=== PATIENT | female | born 1945 | race Caucasian/White ===

== ENCOUNTER 2023-11-08 08:49 | Day surgery (SDC) | payer MEDICARE, BC ==
[2023-11-08] MEDS ORDERED: Lactated Ringers 1,000 ML IV ONE (09:03)
[2023-11-08] MEDS: Lactated Ringers 1,000 ML IV SCH (09:09)
[2023-11-08 09:26] VITALS: RESP 18
[2023-11-08 09:33] LABS: Absolute Neutrophil Ct (ANC) 2.42 x10^3/uL (1.4-6.9); BASOPHIL % 1.3 % (0.0-0.4); Basophil (Absolute #) 0.06 x10^3/uL (0-0.4); Eosinophil % 1.5 % (0.00-5.0); Eosinophil (Absolute #) 0.07 x10^3/uL (0-0.5); Hematocrit 34.4 % (35-47); Hemoglobin 11.5 g/dL (12.0-16.0); IMMATURE GRAN # 0.01 x10^3u/L (0.00-0.03); IMMATURE GRAN % 0.2 % (0.00-0.4); Lymphocyte (Absolute #) 1.74 x10^3/uL (1.0-4.6); Lymphocytes % 37.3 % (24.0-44.0); Mean Cell Volume 99.7 fL (78-100); Mean Corpuscular Hemoglobin 33.3 pg (26-32); Mean Corpuscular Hgb Concent. 33.4 g/dL (32-36); Mean Platelet Volume 10.2 fL (7.5-11.0); Monocyte (Absolute #) 0.37 x10^3/uL (0.0-1.3); Monocytes % 7.9 % (0.0-12.0); Neutrophil % 51.8 % (36.0-66.0); Platelet Count 133 x10^3/uL (150-450); Red Blood Count 3.45 x10^6/uL (4.1-5.4); Red Cell Distribution Width 13.1 % (11.5-14.0); White Blood Count 4.7 x10^3/uL (4.0-10.5)
[2023-11-08 09:53] LABS: ANION GAP 16.7 MEQ/L (5-15); Calcium 9.3 mg/dL (8.4-10.2); Creatinine 1 1.05 mg/dL (0.52-1.04); EST GLOMERULAR FILTRATION RATE 54.4 ML/MIN; Potassium 3.9 mmol/L (3.5-5.1)
[2023-11-08] MEDS ORDERED: Xylocaine-Mpf 2% 5 Ml Vial ONE (12:04)
[2023-11-08] MEDS ORDERED: DIPRIVAN 200 MG/20 ML IV ONE ×2 (12:04→12:15)
[2023-11-08] MEDS ORDERED: ATROPINE SULFATE 1MG ONE (12:09)
[2023-11-08] MEDS ORDERED: SUBLIMAZE 100 MCG/2 ML ONE (12:14)
[2023-11-08] MEDS ORDERED: Ephedrine Sulfate 50 MG/ML ONE (12:29)
[2023-11-08 13:09] VITALS: BP 122/69; PULSE 77; TEMP 96.9; O2SAT 96
--- NOTE | 2023-11-08 13:24 | OP ---
SURGERY DATE/TIME: 11/08/2023 1158 PREOPERATIVE DIAGNOSIS: Due for colorectal cancer screening, average risk. POSTOPERATIVE DIAGNOSIS: One small polyp. PROCEDURE: Colonoscopy with polypectomy. SURGEON: Lyle Dalton M.D. ANESTHESIA: IV anesthesia. CONDITION: Stable. COMPLICATIONS: None. SPECIMEN: Sigmoid polyp 3 mm. HISTORY: This patient is a 77-year-old female average risk due for a screening. She was having a little diarrhea with dairy products. No concerning symptoms. She wants to proceed. FINDINGS: A 3 mm probably hyperplastic sigmoid polyp removed with cold forceps. DESCRIPTION OF PROCEDURE: The patient was brought to endoscopy suite. Routinely positioned and prepared. Time out performed. External exam normal. Digital rectal exam normal. The colonoscope is then inserted and advanced. The cecum confirmed by ileocecal valve and the appendiceal orifice. Withdrawal time is greater than six minutes. Preparation is [place] good preparation. In the sigmoid colon there is a 3 mm hyperplastic appearing polyp taken with cold forceps and sent for pathology. Retroflexion is normal. Scope withdrawn. The patient tolerated the procedure well. RECOMMENDATIONS: Follow up for pathology results. If this is hyperplastic, it would just be a ten year recall for screening. If it is adenomatous probably three to five years.
== END 2023-11-08 13:14 | disposition home or self-care (01) ==
LOC: SDC 08:49
PROVIDERS: ATTEND Surgery
DX: Z12.11 Encounter for screening for malignant neoplasm of colon (principal); Z79.899 Other long term (current) drug therapy; Z80.3 Family history of malignant neoplasm of breast; K63.5 Polyp of colon
CPT/HCPCS: 36415; 80048; 85025; 93005; 99100; J0461; J2704; J3010